=== PATIENT | female | born 1995 | race African-American/Black ===

== ENCOUNTER 2017-10-20 23:04 | Emergency (ER) | payer OTHER ==
[~2017-10-20] VITALS: Ht 149.9 cm; Wt 59.0 kg
[2017-10-20 23:06] VITALS: BP 134/80
== END 2017-10-20 23:45 | disposition home or self-care (01) ==
LOC: ER 23:04
DX: S01.81XA Laceration without foreign body of other part of head, initial encounter (principal); Y04.0XXA Assault by unarmed brawl or fight, initial encounter; Y93.89 Activity, other specified; Y92.89 Other specified places as the place of occurrence of the external cause; Y99.8 Other external cause status

== ENCOUNTER 2017-10-28 19:52 | Emergency (ER) | payer OTHER ==
[~2017-10-28] VITALS: Ht 149.9 cm; Wt 59.0 kg
== END 2017-10-28 21:01 | disposition home or self-care (01) ==
LOC: ER 19:52
DX: S01.411D Laceration without foreign body of right cheek and temporomandibular area, subsequent encounter (principal); J45.909 Unspecified asthma, uncomplicated; X99.0XXD Assault by sharp glass, subsequent encounter

== ENCOUNTER 2017-12-22 17:01 | Emergency (ER) | payer OTHER ==
[~2017-12-22] VITALS: Ht 149.9 cm; Wt 61.2 kg
[2017-12-22] MEDS ORDERED: MOBIC15 MG PO (18:47)
== END 2017-12-22 19:03 | disposition home or self-care (01) ==
LOC: ER 17:01
DX: S16.1XXA Strain of muscle, fascia and tendon at neck level, initial encounter (principal); S20.222A Contusion of left back wall of thorax, initial encounter; S70.02XA Contusion of left hip, initial encounter; J45.909 Unspecified asthma, uncomplicated; V89.2XXA Person injured in unspecified motor-vehicle accident, traffic, initial encounter; Y93.89 Activity, other specified; Y92.89 Other specified places as the place of occurrence of the external cause; Y99.8 Other external cause status

== ENCOUNTER 2018-03-25 19:36 | Emergency (ER) | payer OTHER ==
[~2018-03-25] VITALS: Ht 149.9 cm; Wt 59.0 kg
[~2018-03-25 19:36] MED LIST: MOBIC15 MG PO
[2018-03-25] MEDS ORDERED: NOHOMEMEDICATIONS (20:00)
[2018-03-25 20:03] LABS: URINE BLOOD NEGATIVE (Negative); URINE CLARITY CLEAR; URINE COLOR YELLOW; URINE GLUCOSE-RANDOM* NEGATIVE (Negative); URINE KETONES 2+ (Negative); URINE LEUKOCYTES-REFLEX NEGATIVE (Negative); URINE NITRITE-REFLEX NEGATIVE (Negative); URINE PROTEIN (DIPSTICK) 1+ (Negative); URINE SPECIFIC GRAVITY >= 1.030 (1.005-1.035)
[2018-03-25 20:05] LABS: ICTOTEST (BILI CONFIRMATORY) Negative (Negative); URINE BILIRUBIN NEGATIVE (Negative)
[2018-03-25 20:12] LABS: BACTERIA-REFLEX None Seen /HPF (None Seen); CASTS None Seen /LPF (None Seen); CRYSTALS None Seen /LPF (None Seen); MUCUS >6 Heavy strn/LPF (None Seen); SQUAMOUS >10 Many /LPF (0-3); URINE RBC 3-10 Few /HPF (0-2); URINE WBC-REFLEX 0-5 Rare /HPF (0-5)
[2018-03-25 20:18] LABS: BASOPHILS 0.7 % (0.0-2.0); EOSINOPHILS 0.7 % (0.0-3.0); HEMATOCRIT 35.1 % (37.0-47.0); LYMPHOCYTES 25.9 % (24.0-44.0); MCH 29.9 pg (26.0-34.0); MCHC 34.3 g/dL (28.0-37.0); MCV 87.1 fL (80.0-100.0); MONOCYTES 6.8 % (1.0-8.0); PLATELET COUNT 273 thou/uL (150-400); POLYS 65.9 % (36.0-66.0); RBC 4.03 mil/uL (4.20-5.00); RDW 15.6 % (10.5-14.5); WBC 6.1 thou/uL (4.0-11.0)
[2018-03-25 20:23] LABS: CALCIUM 9.4 mg/dL (8.5-10.1); CREATININE 0.7 mg/dL (0.6-1.0); POTASSIUM 3.1 mmol/L (3.5-5.1)
[2018-03-25] MEDS ORDERED: VITAFOL-OB+DHA1 EACH PO (20:32)
[2018-03-25] MEDS ORDERED: PHENERGAN 25 MG25 M1 PO (20:32)
[2018-03-25 20:53] VITALS: BP 114/72
== END 2018-03-25 20:53 | disposition home or self-care (01) ==
LOC: ER 19:36
PROVIDERS: Physician Assistant
DX: O26.891 Other specified pregnancy related conditions, first trimester (principal); Z3A.00 Weeks of gestation of pregnancy not specified; R11.0 Nausea; R19.7 Diarrhea, unspecified